=== PATIENT | male | born 1995 | race American Indian/Alaskan Native ===

== ENCOUNTER 2017-11-12 07:53 | Inpatient (IN) | payer MEDICAID ==
[2017-11-12] VITALS (8 sets, daily range): BP systolic 107–140; BP diastolic 57–93
[~2017-11-12] VITALS: Ht 170.2 cm; Wt 58.0 kg
[~2017-11-12 07:53] MED LIST: ALBU6.7H INH; IBUP-1984 PO; NO HOME MEDS
[2017-11-12] MEDS ORDERED: albuterol 2.5 MG/3 ML nebule ONE (07:55)
[2017-11-12] MEDS ORDERED: albuterol 2.5 MG/3 ML nebule CONTNEB PRN (08:00)
[2017-11-12] MEDS ORDERED: methylPREDNISolone sod succ 125mg/2ml vial IV ONE (08:00)
[2017-11-12] MEDS ORDERED: LORazepam 2 mg/ml vial IV ONE (08:00)
[2017-11-12] MEDS: magnesium 1gm/100ml D5W IVPB 100 ML IV SCH ×2 (08:11→08:17)
[2017-11-12 08:15] LABS: BASOPHILS # (AUTO) 0.1 X10'3 (0-0.2); BASOPHILS % (AUTO) 0.7 % (0-1); EOSINOPHILS # (AUTO) 1.3 X10'3 (0-0.9); EOSINOPHILS % (AUTO) 11.1 % (0-6); HEMATOCRIT 46.1 % (42.0-52.0); HEMOGLOBIN 15.5 g/dl (14.0-17.9); LYMPHOCYTES # (AUTO) 3.9 X10'3 (1.1-4.8); LYMPHOCYTES % (AUTO) 33.8 % (21-51); MEAN CORPUSCULAR HEMOGLOBIN 30.3 PG (27.0-31.0); MEAN CORPUSCULAR HGB CONC 33.7 % (33.0-36.5); MEAN CORPUSCULAR VOLUME 89.8 FL (78-98); MEAN PLATELET VOLUME 6.4 FL (7.4-10.4); MONOCYTES % (AUTO) 8.7 % (2-12); NEUTROPHILS # (AUTO) 5.3 X10'3 (1.8-7.7); NEUTROPHILS % (AUTO) 45.7 % (42-75); PLATELET COUNT 370 X10'3 (140-440); RED BLOOD COUNT 5.13 X10'6 (4.70-6.10); RED CELL DISTRIBUTION WIDTH 14.6 % (11.5-14.5); WHITE BLOOD COUNT 11.7 X10'3 (4.5-11.0)
[2017-11-12 08:33] LABS: ALANINE AMINOTRANSFERASE 18 U/L (12-78); ALBUMIN 4.2 G/DL (3.4-5.0); ALBUMIN/GLOBULIN RATIO 1.1 (1.1-1.5); ALKALINE PHOSPHATASE 91 IU/L (46-116); ANION GAP 6 (8-16); ASPARTATE AMINO TRANSFERASE 25 U/L (10-37); BILIRUBIN,TOTAL 0.3 MG/DL (0.1-1.0); BLOOD UREA NITROGEN 3 MG/DL (7-18); BUN/CREATININE RATIO 3.6 (5.4-32.0); CALCIUM 8.2 MG/DL (8.5-10.1); CHLORIDE 109 MMOL/L (99-107); CREATININE 0.84 MG/DL (0.60-1.10); GLUCOSE 119 MG/DL (70-104); MAGNESIUM 1.8 MG/DL (1.5-2.4); POTASSIUM 4.1 MMOL/L (3.5-5.1); SODIUM 144 MMOL/L (135-145); TOTAL CARBON DIOXIDE 28.8 MMOL/L (24-32); eGFR > 90 ML/MIN
[2017-11-12 08:51] LABS: ABG BASE EXCESS -3.6 mmol/L (-2.0-3.0); ABG HCO3 26.9 mmol/L (22.0-26.0); ABG OXYGEN SATURATION 98.9 % (95-98); ABG PCO2 (T) 74.1 mmHg (35.0-48.0); ABG PH (T) 7.178 (7.350-7.450); ABG PO2 (T) 191.2 mmHg (83-108); ALLEN'S TEST Positive; FCOHb 2.1 % (0.5-1.5); FLOW 8 L/min; FMetHb 0.3 % (0.3-1.12); FO2Hb 96.5 % (94-100); TOTAL HEMOGLOBIN 15.6 G/dl (14.0-18.0)
[2017-11-12 10:16] LABS: ABG BASE EXCESS -1.5 mmol/L (-2.0-3.0); ABG HCO3 26.2 mmol/L (22.0-26.0); ABG OXYGEN SATURATION 99.2 % (95-98); ABG PCO2 (T) 55.6 mmHg (35.0-48.0); ABG PH (T) 7.291 (7.350-7.450); ABG PO2 (T) 202.1 mmHg (83-108); ALLEN'S TEST Positive; FMetHb 0.3 % (0.3-1.12); FO2Hb 97.9 % (94-100); MINUTE VOLUME 16 L/min; RESPIRATORY RATE 12 b/min; RESPIRATORY RATE (OBSERVED) 22 b/min; TOTAL HEMOGLOBIN 15.7 G/dl (14.0-18.0)
[2017-11-12] MEDS ORDERED: levoFLOXACIN 750MG TABLET PO SCH (11:40)
[2017-11-12] MEDS ORDERED: acetaminophen 325mg tablet PO PRN (11:40)
[2017-11-12] MEDS: K, MAG and/or Phos replacement - Verify level? MC SCH (11:40)
[2017-11-12] MEDS ORDERED: magnesium hydroxide 30ml (MOM) UD suspension PO PRN (11:40)
[2017-11-12] MEDS ORDERED: potassium Cl 20 mEq SR tablet PO PRN ×2 (11:40)
[2017-11-12 12:21] LABS: PARTIAL THROMBOPLASTIN TIME 35 SECONDS (22-32); PROTHROMBIN TIME 10.8 SECONDS (9.0-12.0)
[2017-11-12] MEDS: enoxaparin 40mg/0.4ml syringe SUBCUT SCH (12:41)
[2017-11-12] MEDS: CefTRIAXone 2gm/D5W 50ml 50 ML IV SCH (12:41)
[2017-11-12 13:44] LABS: CLARITY,URINE CLEAR (Clear); COLOR,URINE STRAW (Yellow); GLUCOSE, URINE 100 mg/dl (Neg); KETONES,URINE NEGATIVE (Neg); LEUKOCYTE ESTERASE ,URINE NEGATIVE (Neg); NITRITES, URINE NEGATIVE (Neg); OCCULT BLOOD,URINE NEGATIVE (Neg); PROTEIN,URINE NEGATIVE (Neg); UROBILINOGEN,URINE 0.2 E.U/dL (0.2-1.0)
[2017-11-12 13:46] LABS: UA COLLECTION TYPE STRAIGHT CATH
[2017-11-12 13:48] LABS: URINE AMPHETAMINE SCREEN NEGATIVE (Neg); URINE BARBITUATE SCREEN NEGATIVE (Neg); URINE BENZODIAZEPINES SCREEN NEGATIVE (Neg); URINE CANNABINOID SCREEN POSITIVE (Neg); URINE COCAINE SCREEN NEGATIVE (Neg); URINE METHADONE SCREEN NEGATIVE (Neg); URINE OPIATE SCREEN NEGATIVE (Neg); URINE PHENCYCLIDINE SCREEN NEGATIVE (Neg)
[2017-11-12] MEDS: ipratropium/albuterol 3ml nebule NEB PRN ×2 (14:34→20:30)
[2017-11-12] MEDS: methylPREDNISolone sod succ 125mg/2ml vial IV SCH ×2 (15:07→21:08)
[2017-11-12 16:36] LABS: ABG BASE EXCESS -1.2 mmol/L (-2.0-3.0); ABG HCO3 23.8 mmol/L (22.0-26.0); ABG OXYGEN SATURATION 97.2 % (95-98); ABG PCO2 (T) 40.7 mmHg (35.0-48.0); ABG PH (T) 7.384 (7.350-7.450); ALLEN'S TEST Positive; FCOHb 0.4 % (0.5-1.5); FMetHb 0.2 % (0.3-1.12); FO2Hb 96.6 % (94-100); MINUTE VOLUME 21 L/min; RESPIRATORY RATE 12 b/min; RESPIRATORY RATE (OBSERVED) 22 b/min; TOTAL HEMOGLOBIN 15.6 G/dl (14.0-18.0)
[2017-11-12] MEDS ORDERED: dextrose 50%-water 50ml dispensing syringe IV PRN ×2 (22:35)
[2017-11-12] MEDS ORDERED: insulin Lispro (HumaLOG) vial - multi-dose SQ SCH (22:35)
[2017-11-12] MEDS ORDERED: dextrose ORAL solution 15 GM/59 ML bottle PO PRN ×2 (22:35)
[2017-11-12] MEDS ORDERED: glucagon, human recombinant 1mg kit SUBCUT PRN (22:35)
[2017-11-12 23:01] LABS: HEMOGLOBIN A1C 5.6 % (4.5-6.2)
[2017-11-13] VITALS (9 sets, daily range): BP systolic 117–136; BP diastolic 64–78
[2017-11-13] MEDS: methylPREDNISolone sod succ 125mg/2ml vial IV SCH ×2 (02:52→07:42)
[2017-11-13 05:24] LABS: BASOPHILS % (AUTO) 0 % (0-1); EOSINOPHILS % (AUTO) 0 % (0-6); HEMATOCRIT 42.4 % (42.0-52.0); HEMOGLOBIN 14.4 g/dl (14.0-17.9); LYMPHOCYTES # (AUTO) 0.5 X10'3 (1.1-4.8); LYMPHOCYTES % (AUTO) 4.8 % (21-51); MEAN CORPUSCULAR HEMOGLOBIN 30.1 PG (27.0-31.0); MEAN CORPUSCULAR VOLUME 88.3 FL (78-98); MEAN PLATELET VOLUME 6.8 FL (7.4-10.4); MONOCYTES # (AUTO) 0.2 X10'3 (0-0.9); MONOCYTES % (AUTO) 1.4 % (2-12); NEUTROPHILS % (AUTO) 93.8 % (42-75); PLATELET COUNT 339 X10'3 (140-440); RED BLOOD COUNT 4.81 X10'6 (4.70-6.10); RED CELL DISTRIBUTION WIDTH 14.6 % (11.5-14.5); WHITE BLOOD COUNT 10.7 X10'3 (4.5-11.0)
[2017-11-13 05:58] LABS: ALANINE AMINOTRANSFERASE 16 U/L (12-78); ALKALINE PHOSPHATASE 65 IU/L (46-116); ANION GAP 11 (8-16); ASPARTATE AMINO TRANSFERASE 12 U/L (10-37); BILIRUBIN,TOTAL 0.7 MG/DL (0.1-1.0); BLOOD UREA NITROGEN 9 MG/DL (7-18); BUN/CREATININE RATIO 10.5 (5.4-32.0); CALCIUM 9.2 MG/DL (8.5-10.1); CHLORIDE 103 MMOL/L (99-107); CREATININE 0.86 MG/DL (0.60-1.10); GLUCOSE 167 MG/DL (70-104); SODIUM 139 MMOL/L (135-145); TOTAL CARBON DIOXIDE 25.5 MMOL/L (24-32); TOTAL PROTEIN 7.9 G/DL (6.4-8.2); eGFR > 90 ML/MIN
[2017-11-13 06:48] LABS: MAGNESIUM 2.1 MG/DL (1.5-2.4)
[2017-11-13] MEDS ORDERED: pantoprazole 40mg Tablet.DR PO SCH (07:30)
[2017-11-13] MEDS: CefTRIAXone 2gm/D5W 50ml 50 ML IV SCH (07:42)
[2017-11-13] MEDS: enoxaparin 40mg/0.4ml syringe SUBCUT SCH (07:42)
[2017-11-13] MEDS: K, MAG and/or Phos replacement - Verify level? MC SCH (08:00)
[2017-11-13] MEDS ORDERED: insulin glargine (Lantus) pen - multi-dose SQ SCH (21:00)
== END 2017-11-13 09:30 | disposition left against medical advice (07) | DRG 133 ==
LOC: ER 07:54 → ED HOLD 11:39 → CICU 2S 14:22
PROVIDERS: ADMIT Internal Medicine Critical Care Medicine; ATTEND Internal Medicine Critical Care Medicine
PROC: 5A09357 Assistance with Respiratory Ventilation, Less than 24 Consecutive Hours, Continuous Positive Airway Pressure (ICD-10-PCS; principal; 2017-11-12)
DX: J96.02 Acute respiratory failure with hypercapnia (principal); J45.52 Severe persistent asthma with status asthmaticus; F17.210 Nicotine dependence, cigarettes, uncomplicated; F12.90 Cannabis use, unspecified, uncomplicated; Z53.21 Procedure and treatment not carried out due to patient leaving prior to being seen by health care provider; Z91.19 Patient's noncompliance with other medical treatment and regimen
CPT/HCPCS: 36415; 36600; 71045; 80053; 80305; 81003; 82803; 82948; 83036; 83735; 83880; 84100; 84145; 85018; 85025; 85610; 85730; 87040; 87070; 93005; 94640; 94660; 94760; 96365; 96375; 99291; A4353; A6213; J0696; J1650; J1815; J2060; J2930; J7030

== ENCOUNTER 2020-08-02 21:58 | Emergency (ER) | payer MEDICAID ==
[~2020-08-02] VITALS: Ht 170.2 cm; Wt 65.9 kg
[~2020-08-02 21:58] MED LIST changes: -ALBU6.7H INH; +ALBU6.7H9 INH; -NO HOME MEDS
[2020-08-02] MEDS ORDERED: ipratropium 0.5 MG/2.5ML nebule IH ONE (22:25)
[2020-08-02] MEDS ORDERED: albuterol 2.5 MG/3 ML nebule NEB ONE (22:25)
[2020-08-02] MEDS ORDERED: PRED20TA PO (23:28)
[2020-08-02] MEDS ORDERED: ALBU8.5H8 INH (23:29)
[2020-08-02] MEDS ORDERED: predniSONE 20 mg tablet PO ONE (23:30)
[2020-08-02 23:39] VITALS: BP 125/87
== END 2020-08-02 23:42 | disposition home or self-care (01) ==
LOC: ER 22:00
DX: J45.909 Unspecified asthma, uncomplicated (principal); F17.200 Nicotine dependence, unspecified, uncomplicated; F12.90 Cannabis use, unspecified, uncomplicated; Z79.899 Other long term (current) drug therapy
CPT/HCPCS: 94640; 99283; J7512; 94760